=== PATIENT | female | born 1995 | race Caucasian/White ===

== ENCOUNTER 2020-05-21 07:13 | Outpatient (CLI) | payer BC ==
[2020-05-21 13:34] LABS: BHCG - Serum Negative (NEGATIVE); Pregs Control Background? CLEAR/WHITE (CLR/WHITE); Pregs Control Bar Appear? YES (CONTROL BAR)
[2020-05-22 15:35] LABS: SARS-CoV-2 MS2 Positive; SARS-CoV-2 N Gene Negative; SARS-CoV-2 S Gene Negative; SARS-CoV-2 by NAA Not Detected (NotDetected); SARS-CoV-2 orf1ab Negative
== END 2020-05-21 07:14 | disposition home or self-care (01) ==
LOC: LABBT 07:13
PROVIDERS: ATTEND Specialist
DX: Z01.812 Encounter for preprocedural laboratory examination (principal); J30.9 Allergic rhinitis, unspecified; Q18.0 Sinus, fistula and cyst of branchial cleft; R22.1 Localized swelling, mass and lump, neck; Z20.828 Contact with and (suspected) exposure to other viral communicable diseases
CPT/HCPCS: 84703; 85014; 87635; U0003

== ENCOUNTER 2020-05-24 10:34 | Day surgery (SDC) | payer BC ==
[2020-05-22 11:28] VITALS: BMI 26.6
[~2020-05-24 10:34] MED LIST: Dexamethasone 20 MG/5 ML VIAL ONE; Ketorolac Tromethamine 30 MG/ML VIAL ONE; Lidocaine 1% PF 5 ML VIAL ONE; Ondansetron PF 4 MG/2 ML Vial ONE; PROPOFOL 200 MG/20 ML VIAL ONE; Rocuronium Bromide 10 MG/ML (10ML VIAL) ONE
[2020-05-24] MEDS ORDERED: Bacitracin Zinc Ointment 30 gm TUBE ONE (10:55)
[2020-05-24] MEDS ORDERED: Fentanyl 100 MCG/2 ML VIAL ONE ×2 (10:55→13:15)
[2020-05-24] MEDS ORDERED: Lidocaine 1% w/Epinephrine 1:100K 20 ML VIAL ONE (10:55)
[2020-05-24] MEDS ORDERED: Midazolam HCl 2 mg/2 ml Vial ONE (12:03)
[2020-05-24] MEDS ORDERED: Promethazine HCl 25 MG/ML VIAL ONE (13:21)
[2020-05-24] MEDS ORDERED: HYDROcodone/Acetaminophen 5/325 mg Tablet ONE (14:34)
--- NOTE | 2020-05-27 13:20 | OP ---
DATE OF PROCEDURE: 05/24/2020 PREOPERATIVE DIAGNOSIS: Left fourth branchial cleft cyst. POSTOPERATIVE DIAGNOSIS: Left fourth branchial cleft cyst. PROCEDURES PERFORMED: 1. Direct laryngoscopy. 2. Excision of left branchial cleft cyst. PROCEDURE IN DETAIL: After consent was obtained, the patient was identified and brought to the operating room and placed on the operating room table in the supine position. General endotracheal anesthesia was obtained. The patient was positioned for laryngoscopy. The patient underwent systematic evaluation of the tonsil, tonsillar fossas, hypopharynx, and larynx and no obvious cyst tract was identified or masses or other abnormalities were appreciated during laryngoscopy. We then proceeded with prepping and draping the patient and we infiltrated the area of intended incision with 1% lidocaine with 1:100,000 epinephrine. We then made a small elliptical incision around the tract and dissected it through the subcutaneous tissues. The tract went anterior to the sternocleidomastoid muscle and then seemed to taper out within within the anterior border of the sternocleidomastoid muscle and the tract was suture ligated and the wound was then closed in layers with the strap muscles being reapproximated as well as the dermis, the and the skin itself. Sterile dressing was applied. The patient was awakened and taken to the recovery room in stable condition prior to discharge home. Job ID: [id number]
== END 2020-05-24 14:50 | disposition home or self-care (01) ==
LOC: SDC 10:34
PROVIDERS: ATTEND Specialist
PROC: 0JB50ZZ Excision of Left Neck Subcutaneous Tissue and Fascia, Open Approach (ICD-10-PCS; principal; 2020-05-24)
DX: Q18.0 Sinus, fistula and cyst of branchial cleft (principal); J30.9 Allergic rhinitis, unspecified; Z79.899 Other long term (current) drug therapy; Z88.0 Allergy status to penicillin; Z88.5 Allergy status to narcotic agent; Z88.7 Allergy status to serum and vaccine
CPT/HCPCS: 88304; J1100; J1885; J2250; J2405; J2550; J2704; J3010